=== PATIENT | male | born 1985 | race Caucasian/White ===

== ENCOUNTER 2018-09-08 17:17 | Emergency (ER) | payer OTHER ==
[~2018-09-08] VITALS: Ht 182.8 cm; Wt 90.7 kg
[~2018-09-08 17:17] MED LIST: AZULFIDINE500 MG PO; FOLIC ACID1 MG PO; MEDROL DOSEPAK4 MG PO; PROVENTIL0.09 MG/AC IH; ZITHROMAX Z PA250 MG PO
[2018-09-08] MEDS ORDERED: ROBITUSSIN DM 105 ML PO (19:12)
[2018-09-08] MEDS ORDERED: PREDNISONE50 MG PO (19:12)
== END 2018-09-08 19:35 | disposition home or self-care (01) ==
LOC: ED 17:17
DX: J20.9 Acute bronchitis, unspecified (principal); J45.909 Unspecified asthma, uncomplicated; F17.200 Nicotine dependence, unspecified, uncomplicated; Z79.899 Other long term (current) drug therapy

== ENCOUNTER 2023-02-18 07:40 | Emergency (ER) | payer OTHER ==
[~2023-02-18] VITALS: Ht 182.8 cm; Wt 93.0 kg
[~2023-02-18 07:40] MED LIST changes: +PREDNISONE50 MG PO; +ROBITUSSIN DM 105 ML PO
[2023-02-18] MEDS ORDERED: OMEPRAZOLE MAGN20 MG PO (07:46)
[2023-02-18] MEDS ORDERED: EPIPEN 2-P0.3 MG/0.3 IJ (08:45)
[2023-02-18] MEDS ORDERED: PREDNISONE50 MG PO (08:45)
== END 2023-02-18 08:50 | disposition home or self-care (01) ==
LOC: ED 07:40
DX: T63.441A Toxic effect of venom of bees, accidental (unintentional), initial encounter (principal); Y92.89 Other specified places as the place of occurrence of the external cause; J45.909 Unspecified asthma, uncomplicated

== ENCOUNTER 2023-10-10 10:19 | Emergency (ER) | payer OTHER ==
[~2023-10-10] VITALS: Ht 182.8 cm; Wt 90.7 kg
[~2023-10-10 10:19] MED LIST changes: +EPIPEN 2-P0.3 MG/0.3 IJ; +OMEPRAZOLE MAGN20 MG PO; +VISTARIL25 MG PO
[2023-10-10] MEDS ORDERED: Tdap Vaccine 0.5 ML SYR (Adult Vaccine) IM ONE (10:45)
[2023-10-10] MEDS ORDERED: Lidocaine Hydrochloride 2 ML AMP SC ONE (11:00)
[2023-10-10] MEDS ORDERED: CEPHALEXIN500 M1 PO (11:58)
== END 2023-10-10 12:01 | disposition home or self-care (01) ==
LOC: ED 10:19
DX: S61.216A Laceration without foreign body of right little finger without damage to nail, initial encounter (principal); F41.9 Anxiety disorder, unspecified; J45.909 Unspecified asthma, uncomplicated; Z91.030 Bee allergy status; W26.8XXA Contact with other sharp object(s), not elsewhere classified, initial encounter; Y93.89 Activity, other specified; Y92.89 Other specified places as the place of occurrence of the external cause; Y99.0 Civilian activity done for income or pay

== ENCOUNTER → 2024-05-17 | Outpatient (CLI) | payer OTHER ==
[~2024-05-17] MED LIST changes: +CEPHALEXIN500 M1 PO
== END | disposition home or self-care (01) ==
LOC: LAB 07:46
PROVIDERS: ATTEND Nurse Practitioner Primary Care
DX: K21.00 Gastro-esophageal reflux disease with esophagitis, without bleeding (principal); R53.83 Other fatigue; M79.10 Myalgia, unspecified site